=== PATIENT | female | born 1975 ===

== ENCOUNTER 2018-10-01 15:59 | Emergency (ER) | payer MEDICAID ==
[2018-10-01] MEDS ORDERED: PEPCID IV ONE (16:24)
[2018-10-01] MEDS ORDERED: REGLAN IV ONE (16:24)
[2018-10-01] MEDS ORDERED: MORPHINE IV ONE ×2 (16:24→19:34)
[2018-10-01] MEDS ORDERED: NACL 0.9% 1000 ML 1,000 ML IV ONE (16:24)
[2018-10-01 16:53] LABS: Basophils % (Auto) 0.3 % (0.0-1.8); Hemoglobin 13.3 gm/dl (10.1-14.3); Lymphocytes # (Auto) 1.9 K/mm3 (1.2-5.4); Lymphocytes % (Auto) 14.9 % (13.4-35.0); Mean Corpuscular HGB Conc 34 % (30-34); Mean Corpuscular Volume 88 fl (79-97); Monocytes # (Auto) 0.7 K/mm3 (0.0-0.8); Monocytes % (Auto) 5.7 % (0.0-7.3); Platelet Count 247 K/mm3 (140-440); Red Blood Count 4.43 M/mm3 (3.65-5.03); Red Cell Distribution Width 14.3 % (13.2-15.2)
--- NOTE | 2018-10-01 16:56 | XRay Report ---
CHEST 1 VIEW 10/01/2018 4:30 PM INDICATION / CLINICAL INFORMATION: Abdominal Pain. COMPARISON: None available. FINDINGS: SUPPORT DEVICES: None. HEART / MEDIASTINUM: No significant abnormality. LUNGS / PLEURA: No significant pulmonary or pleural abnormality. No pneumothorax. ADDITIONAL FINDINGS: No significant additional findings. IMPRESSION: 1. No acute findings. Signer Name: Alvaro Kelly MD Signed: 10/01/2018 3:51 PM Workstation Name: [id number]
[2018-10-01] MEDS ORDERED: MORPHINE ONE (17:04)
[2018-10-01 17:14] LABS: Alanine Aminotransferase 12 units/L (7-56); Albumin 3.8 g/dL (3.9-5); BUN/Creatinine Ratio 14; Blood Urea Nitrogen 10 mg/dL (7-17); Hemolysis Index 18
--- NOTE | 2018-10-01 17:45 | Emergency Department Report ---
ED Abdominal Pain HPI - General Chief Complaint: Abdominal Pain Stated Complaint: ABDOMINAL PAIN Time Seen by Provider: 10/01/18 16:24 Source: EMS Mode of arrival: Stretcher Limitations: No Limitations - History of Present Illness Initial Comments: patient c/o mild epigastric pain, nausea, for the past 2 days. states h/o similar symptoms. no fever, chills or nightsweats. patient has not taken any meds for symptoms. she rates symptoms as severe in severity. no alleviating or exacerbating factors. states she uses alcohol occasionally. pain does not ra diate. MD Complaint: abdominal pain Severity scale (0 -10): 10 - Related Data Previous Rx's Medication Instructions Recorded Last Taken Type Ciprofloxacin HCl [Ciprofloxacin 250 mg PO BID #14 tablet 10/01/18 Unknown Rx TAB] Omeprazole 40 mg PO DAILY #30 capsule. 10/01/18 Unknown Rx Allergies Allergy/AdvReac Type Severity Reaction Status Date / Time amoxicillin Allergy Hives Verified 10/01/18 16:17 ED Review of Systems ROS: Stated complaint: ABDOMINAL PAIN Other details as noted in HPI Comment: All other systems reviewed and negative Constitutional: no symptoms reported ENT: denies: ear pain Respiratory: denies: cough Cardiovascular: denies: chest pain Gastrointestinal: abdominal pain, nausea. denies: diarrhea Genitourinary: denies: urgency Skin: denies: rash Neurological: denies: headache Psychiatric: denies: anxiety ED Past Medical Hx - Past Medical History Previous Medical History?: Yes Additional medical history: Gastric Ulcer - Surgical History Past Surgical History?: Yes Additional Surgical History: Tonsilletomy - Social History Smoking Status: Current Every Day Smoker Substance Use Type: Alcohol - Medications Home Medications: Home Medications Medication Instructions Recorded Confirmed Last Taken Type Ciprofloxacin HCl [Ciprofloxacin 250 mg PO BID #14 tablet 10/01/18 Unknown Rx TAB] Omeprazole 40 mg PO DAILY #30 capsule. 10/01/18 Unknown Rx ED Physical Exam - General Limitations: No Limitations General appearance: alert, in no apparent distress - Head Head exam: Present: atraumatic, normocephalic - Eye Eye exam: Present: normal appearance, PERRL, EOMI Pupils: Present: normal accommodation - ENT ENT exam: Present: normal exam, normal orophraynx - Neck Neck exam: Present: normal inspection - Respiratory Respiratory exam: Present: normal lung sounds bilaterally - Cardiovascular Cardiovascular Exam: Present: regular rate, normal rhythm - GI/Abdominal GI/Abdominal exam: Present: soft - Extremities Exam Extremities exam: Present: normal inspection, full ROM - Back Exam Back exam: Present: normal inspection, full ROM - Neurological Exam Neurological exam: Present: alert, oriented X3, CN II-XII intact - Psychiatric Psychiatric exam: Present: normal affect, normal mood - Skin Skin exam: Present: warm, dry ED Course Vital Signs 10/01/18 10/01/18 10/01/18 16:10 16:12 16:16 Temperature 97.7 F Pulse Rate 68 64 113 H Respiratory 12 15 27 H Rate Blood Pressure 133/65 133/65 Blood Pressure [Left] O2 Sat by Pulse 98 99 99 Oximetry 10/01/18 10/01/18 10/01/18 16:21 16:30 17:00 Temperature Pulse Rate 58 L 61 Respiratory 27 H 11 L 12 Rate Blood Pressure 133/65 130/68 Blood Pressure [Left] O2 Sat by Pulse 99 97 95 Oximetry 10/01/18 10/01/18 10/01/18 19:42 19:49 21:57 Temperature Pulse Rate 60 60 Respiratory 12 19 19 Rate Blood Pressure Blood Pressure 165/91 169/74 [Left] O2 Sat by Pulse 99 99 Oximetry ED Medical Decision Making - Lab Data Result diagrams: 10/01/18 16:28 10/01/18 16:33 Critical care attestation.: If time is entered above; I have spent that time in minutes in the direct care o f this critically ill patient, excluding procedure time. ED Disposition Clinical Impression: Gastritis Qualifiers: Gastritis type: other gastritis Chronicity: acute Gastritis bleeding: without bleeding Qualified Code(s): K29.00 - Acute gastritis without bleeding UTI (urinary tract infection) Qualifiers: Urinary tract infection type: acute cystitis Hematuria presence: without he maturia Qualified Code(s): N30.00 - Acute cystitis without hematuria Disposition: - TO HOME OR SELFCARE Is pt being admited?: No Does the pt Need Aspirin: No Condition: Stable Instructions: Abdominal Pain (ED) Prescriptions: Ciprofloxacin HCl [Ciprofloxacin TAB] 250 mg PO BID #14 tablet Omeprazole 40 mg PO DAILY #30 capsule.dr Referrals: PIYUSH KUNZODESSA MD GIRISH [Primary Care Provider] - 3-5 Days
[2018-10-01 18:18] LABS: HCG Qualitative,Urine Negative (Negative)
[2018-10-01 18:24] LABS: Bilirubin,Urine NEG (Negative); Blood,Urine NEG (Negative); Color,Urine Yellow (Yellow); Mucus,Urine 3+ /HPF; Urobilinogen,Urine < 2.0 mg/dL (<2.0)
[2018-10-01] MEDS ORDERED: BENADRYL IV ONE (18:56)
--- NOTE | 2018-10-01 19:42 | Cat Scan Report ---
CT of the abdomen and pelvis with intravenous contrast INDICATION / CLINICAL INFORMATION: Left upper quadrant pain since yesterday. TECHNIQUE: The patient received 100 cc Omnipaque [address] scans at this location are performed using CT dose reduction for ALARA by means of automated exposure control. COMPARISON: None available. FINDINGS: ABDOMEN: The liver, spleen, gallbladder, bile ducts, pancreas, adrenal glands, kidneys and bowel demo nstrate no significant abnormality. No adenopathy is seen. The lung bases are clear. PELVIS: There is a 3 cm left ovarian cyst which is likely physiologic. No free fluid is seen. The keon ailyn and right adnexa are unremarkable. There is no evidence of appendicitis or diverticulitis. I do n ot identify a hernia. No acute osseous abnormality is seen. IMPRESSION: 1. No cause for left upper quadrant pain is seen. 2. 3 cm left ovarian cyst is probably physiologic. Signer Name: Norberto Sagastume MD Signed: 10/01/2018 6:38 PM Workstation Name: [id number]
[2018-10-01 21:58] VITALS: BP 169/74
== END 2018-10-01 22:45 | disposition home or self-care (01) ==
LOC: ED 15:59
DX: R10.9 Unspecified abdominal pain (principal); R11.2 Nausea with vomiting, unspecified; R19.7 Diarrhea, unspecified; F17.200 Nicotine dependence, unspecified, uncomplicated; Z88.1 Allergy status to other antibiotic agents
CPT/HCPCS: 36415; 71045; 74177; 80053; 81001; 81025; 82150; 83690; 84484; 85025; 87086; 93005; 93010; 96361; 96374; 96375; 96376; 99285; J1200; J2270; J2765; J7030; Q9967